=== PATIENT | female | born 1955 | race African-American/Black ===

== ENCOUNTER 2017-07-14 07:24 | Emergency (ER) | payer BC ==
[2017-07-14 09:44] VITALS: BP 129/72
--- NOTE | 2017-07-14 09:50 | RAD ---
HISTORY: Low back pain, left hip pain COMPARISONS: Pelvis dated July 14, 2016 VIEWS: 3, Frontal view of the pelvis with frontal and frog-leg views of the left hip FINDINGS: BONE DENSITY: Normal. BONES: There is no displaced fracture. JOINTS: There is mild osteoarthritis of the hips bilaterally. ALIGNMENT: There is no dislocation. SOFT TISSUES: Unremarkable. OTHER FINDINGS: None. IMPRESSION: OSTEOARTHRITIS. NO ACUTE OSSEOUS INJURY. IF SYMPTOMS PERSIST, RECOMMEND REPEAT IMAGING.
--- NOTE | 2017-07-14 09:51 | RAD ---
Indication: Back pain. 5 views of lumbar spine demonstrate vertebral bodies to be normal in height. Facet arthropathy is noted at L5-S1 with degenerative disc disease. Degenerative disc disease at T10-T11 and T11-T12. IMPRESSION: DEGENERATIVE CHANGES OF THE LUMBAR SPINE WITHOUT FRACTURE.
--- NOTE | 2017-07-14 14:30 | UC ---
Teja Mary Angela, scribed for Florence Morales MD on 07/14/17 at 0838 . Back Pain HPI - HPI Summary HPI Summary: This pt is a 61 y/o female presenting to [facility] c/o progressively worsening back pain and left hip pain s/p working out at the gym 4 days ago. She experiences back spasms with movement and when standing up from a sitting position. Pt was doing a pulling movement with her right arm while bending in a sitting position at the gym. Pt reports her pain has been significantly worse since yesterday. Pt notes her pain radiates to her left leg. She states having right foot tingling from diabetic neuropathy. Pt has taken tylenol and motrin with minimal relief. She denies bowel or urinary incontinence, fever, cold, chills, cough. Blood sugar has been running between 150-170. PCP: Dr. Christiansen. Last time she saw her PCP was last week for a UTI but it was negative. Pt has had left knee surgery and laminectomy (2014). She states going to [facility] when needed. - History of Current Complaint Chief Complaint: UCBackPain Stated Complaint: BACK/HIP/LEG PAIN Time Seen by Provider: 07/14/17 08:35 Hx Obtained From: Patient Onset/Duration: Lasting Days Timing: Lasting Days Severity Initially: Mild Severity Currently: Moderate Back Pain: Radiates To - left leg Aggravating Factor(s): Movement, Other - standing up from sitting position Alleviating Factor(s): Nothing Associated Signs And Symptoms: Positive: Tingling - right foot from diabetic neuropathy. Negative: Fever, Numbness, Abdominal Pain, Bladder Incontinence, Bowel Incontinence - Allergies/Home Medications Allergies/Adverse Reactions: Allergies Allergy/AdvReac Type Severity Reaction Status Date / Time Oxaprozin [From Daypro] Allergy Diaphoresis Verified 07/14/17 07:41 Sulindac [From Clinoril] Allergy Diaphoresis Verified 07/14/17 07:41 NSAIDs AdvReac Severe GI Upset Verified 07/14/17 07:41 Codeine AdvReac Hallucinati Verified 07/14/17 07:41 ons MOTRIN AdvReac GI Upset Uncoded 07/14/17 07:41 Home Medications: Home Medications Cod Liver Oil 1 cap PO 07/14/17 [History Confirmed 07/14/17] Cyanocobalamin TAB* [Vitamin B12 TAB*] 500 mcg PO DAILY 07/14/17 [History Confirmed 07/14/17] Folic Acid [FA-8] 0.8 mg PO 07/14/17 [History] Gabapentin CAP(*) [Neurontin 100 mg CAP(*)] 100 mg PO BID 07/14/17 [History Confirmed 07/14/17] Isosorbide Mononitrate ER TAB* [Imdur ER TAB*] 30 mg PO BID 07/14/17 [History Confirmed 07/14/17] Magnesium 500 mg PO 07/14/17 [History] Spironolactone TAB* [Aldactone TAB*] 25 mg PO DAILY 07/14/17 [History Confirmed 07/14/17] Valsartan TAB* [Diovan TAB*] 160 mg PO DAILY 07/14/17 [History Confirmed ] PMH/Surg Hx/FS Hx/Imm Hx Previously Healthy: No Endocrine History: Diabetes - type 2 Cardiovascular History: Hypertension - Surgical History Surgical History: Yes Surgery Procedure, Year, and Place: Jun 2015 - 3 level laminectomy, L3-L4, L4- L5, L[place] [facility] [place]AC[place]. [place] 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[place] Alcohol Use: None Substance Use Type: None Smoking Status (MU): Former Smoker Type: Cigarettes Amount Used/How Often: 1/2-1PPD X 2 YEARS Have You Smoked in the Last Year: No When Did the Patient Quit Smoking/Using Tobacco: 1973 - Immunization History Most Recent Influenza Vaccination: 2012 Most Recent Tetanus Shot: UP TO DATE Most Recent Pneumonia Vaccination: HAS NOT HAD Review of Systems Constitutional: Negative Skin: Negative Eyes: Negative ENT: Negative Respiratory: Negative Cardiovascular: Negative Genitourinary: Negative Neurovascular: Negative Musculoskeletal: Other: - back pain, left leg pain, left hip pain Neurological: Paresthesia - right foot from diabetic neuropathy All Other Systems Reviewed And Are Negative: Yes Physical Exam Triage Information Reviewed: Yes Appearance: Well-Nourished Vital Signs: Initial Vital Signs Temp 98.5 F 07/14/17 07:52 Pulse 78 07/14/17 07:52 Resp 20 07/14/17 07:52 BP 134/78 07/14/17 07:52 Pulse Ox 98 07/14/17 07:52 Vital Signs Reviewed: Yes Eye Exam: Normal ENT Exam: Normal Neck exam: Normal Neck: Positive: Supple Respiratory Exam: Normal, Other - no dyspnea, no tachypnea, normal respiratory rate Respiratory: Positive: Chest non-tender, Lungs clear, Normal breath sounds, No respiratory distress, No accessory muscle use Cardiovascular Exam: Normal Cardiovascular: Positive: RRR, No Murmur, Pulses Normal, Brisk Capillary Refill , Other: - Heart rate regular, good general skin color, good capillary refill Abdominal Exam: Normal Abdomen Description: Positive: Nontender, No Organomegaly, Soft Bowel Sounds: Positive: Present Musculoskeletal: Positive: Strength Intact, Other: - low back pain, left hip pain Neurological Exam: Normal - nonfocal, grossly intact Psychological Exam: Normal - conversing easily and appropriately Skin Exam: Normal - no visible or reported rash Diagnostics - Radiology Lumbar Spine XR Xray Interpretation: Positive (See Comments) - IMPRESSION: degenerative changes of the lumbar spine without fracture. ED physician has reviewed this radiology report and agrees. Radiology Interpretation Completed By: Radiologist Left hip XR Xray Interpretation: Positive (See Comments) - IMPRESSION: Osteoarthritis. No acute osseous injury. If symptoms persist, recommend repeat imaging. ED physician has reviewed this radiology report and agrees. Radiology Interpretation Completed By: Radiologist Back Pain Course/Dx - Course Course Of Treatment: Reviewed x-rays, reviewed x-ray reports with pt. No acute fx. + djd, arthritis. (see report). Reviewed medications and allergies with pt. Also reviewed medical history. Medication options for discomfort are limited. She may benefit from physical therapy (will check with pcp), she will f/u Dr. Christiansen, if possible within the next week. Lidoderm patch ordered prn in the meantime. Further imaging studies per discretion of pcp. Ms. Bajwa has a walker at home, using a cane here. Questions as posed answered to the best of my ability. Likely musc-skel strain (possibly psoas involvement in addition to LBS). Can not entirely exclude neurological (ex sciatic-type) component. No p/d. No b/b changes. She will f/u pcp, she will seek medical attention for worse or new problems in the meantime. - Differential Dx/Diagnosis Provider Diagnoses: Acute low back and hip sprain. Arthritis / djd. Discharge - Discharge Plan Condition: Stable Disposition: HOME Prescriptions: Lidocaine PATCH 5%* [Lidoderm 5% Patch*] 1 patch TRANSDERM DAILY #12 patch Patient Education Materials: Muscle Strain (ED), Low Back Strain (ED), Arthritis (ED) Referrals: Raúl Christiansen MD [Primary Care Provider] - Additional Instructions: Follow up Dr. Christiansen this week. Consider referral to physical therapy. Seek medical attention for worse or new problems. The documentation as recorded by the Teja granados Angela accurately reflects the service I personally performed and the decisions made by , Florence Morales MD.
== END 2017-07-14 10:25 | disposition home or self-care (01) ==
LOC: UCEAST 07:24
DX: M54.5 Low back pain (principal); S73.102A Unspecified sprain of left hip, initial encounter; X50.1XXA Overexertion from prolonged static or awkward postures, initial encounter; Y93.B9 Activity, other involving muscle strengthening exercises; Y92.89 Other specified places as the place of occurrence of the external cause; M51.36 Other intervertebral disc degeneration, lumbar region; M16.12 Unilateral primary osteoarthritis, left hip; E11.40 Type 2 diabetes mellitus with diabetic neuropathy, unspecified; I10 Essential (primary) hypertension; Z96.652 Presence of left artificial knee joint; Z90.710 Acquired absence of both cervix and uterus; Z88.6 Allergy status to analgesic agent; Z88.5 Allergy status to narcotic agent; Z88.8 Allergy status to other drugs, medicaments and biological substances; Z87.891 Personal history of nicotine dependence
CPT/HCPCS: 72110; 99212; G0463

== ENCOUNTER 2017-12-24 17:07 | Emergency (ER) | payer BC ==
[2017-12-24] MEDS ORDERED: Aspirin Low Dose CHEW TAB* 81 MG PO ONE (17:51)
[2017-12-24 18:15] LABS: ABS Basophils 0.1 10^3/ul (0-0.2); ABS Eosinophils 0.3 10^3/ul (0-0.6); ABS Lymphocytes 2.2 10^3/ul (1.0-4.8); ABS Monocytes 0.6 10^3/ul (0-0.8); ABS Neutrophils 4.5 10^3/ul (1.5-7.7); ABS Nucleated RBC 0 10^3/ul; Eosinophil % 3.6 % (0-6); Hematocrit 36 % (35-47); Hemoglobin 12.2 g/dl (12.0-16.0); Lymphocyte % 29.1 % (25-47); Mean Corpuscular HGB Conc 34 g/dl (31-36); Mean Corpuscular Hemoglobin 28 pg (27-31); Mean Corpuscular Volume 82 fL (80-97); Mean Platelet Volume 9 um3 (7.4-10.4); Nucleated Red Blood Cells % 0.1; Platelet Count 244 10^3/ul (150-450); Red Blood Count 4.39 10^6/ul (4.0-5.4); Red Cell Distribution Width 13 % (10.5-15); White Blood Count 7.6 10^3/ul (3.5-10.8)
[2017-12-24 18:23] LABS: INR 0.87 (0.77-1.02)
[2017-12-24 18:31] LABS: EGFR Non-African American 48.5 (>60)
--- NOTE | 2017-12-24 18:48 | RAD ---
Indication: Chest pain. 2 views of the chest are reviewed. No mediastinal shift is noted. Heart is of normal size and configuration. Lung johnson are clear. IMPRESSION: No active cardiopulmonary disease is noted.
[2017-12-24 18:54] LABS: Urine Appearance Clear; Urine Blood Negative (Negative); Urine Color Straw; Urine Ketones Negative (Negative); Urine Protein Negative (Negative); Urine Specific Gravity 1.006 (1.010-1.030); Urine Urobilinogen Negative (Negative)
[2017-12-24 19:07] VITALS: BP 132/78
--- NOTE | 2017-12-30 23:35 | ED ---
Lilly Mary Julia, scribed for Armen Gilbert MD on 12/24/17 at 1810 . Palpitations / Dysrhythmia - HPI Summary HPI Summary: This patient is a 62 year old F presenting to [facility] with a chief complaint of intermittent dizziness for the past week and a half that became constant today. Patient reports diarrhea prior to dizziness. Patient denies SOB, chest pain, and nausea. Symptoms aggravated by sitting to standing. She was sent her by her PCP due to an abnormal EKG finding at her PCP. Patient has RBBB on her EKGs at baseline. - History of Current Complaint Chief Complaint: EDChestPainROMI Time Seen by Provider: 12/24/17 18:01 Hx Obtained From: Patient Onset/Duration: Lasting Weeks Timing: Intermittent Episodes Lasting: Severity Initially: Worse Since: - today Associated Signs & Symptoms: Dizzy - Allergy/Home Medications Allergies/Adverse Reactions: Allergies Allergy/AdvReac Type Severity Reaction Status Date / Time MS Oxaprozin [From Daypro] Allergy Diaphoresis Verified 07/14/17 07:41 MS Sulindac [From Clinoril] Allergy Diaphoresis Verified 07/14/17 07:41 Penicillins Allergy See Comment Verified 12/24/17 17:57 MS NSAIDs [NSAIDs] AdvReac Severe GI Upset Verified 07/14/17 07:41 MS Codeine [Codeine] AdvReac Hallucinati Verified 07/14/17 07:41 ons MOTRIN AdvReac GI Upset Uncoded 07/14/17 07:41 PMH/Surg Hx/FS Hx/Imm Hx Endocrine/Hematology History: Reports: Hx Diabetes - type 2 Cardiovascular History: Reports: Hx Angina - NONE IN THE LAST 1-2 WEEKS, Hx Hypertension Denies: Hx Pacemaker/ICD Respiratory History: Reports: Hx Sleep Apnea - NO APPLIANCE OR CPAP FOR, Other Respiratory Problems/Disorders - recent SOB Denies: Hx Asthma, Hx Chronic Obstructive Pulmonary Disease (COPD) GI History: Reports: Hx Gastroesophageal Reflux Disease - ON MEDICATION FOR Musculoskeletal History: Reports: Hx Arthritis, Hx Back Problems, Other Musculoskeletal History - 02/2014 (left) TKR Denies: Hx Scoliosis Sensory History: Reports: Hx Contacts or Glasses - GLASSES Denies: Hx Hearing Aid Opthamlomology History: Reports: Hx Contacts or Glasses - GLASSES Neurological History: Denies: Hx Headaches, Other Neuro Impairments/Disorders Psychiatric History: Denies: Hx Panic Disorder - Surgical History Surgery Procedure, Year, and Place: Jun 2015 - 3 level laminectomy, L3-L4, L4- L5, L5 states. [facility] [place]/2014- LEFT TOTAL KNEE REPLACEMENT. HYSTERECTOMY-[facility] [place]- 1979. TUBAL -1977 Hx Anesthesia Reactions: No - Immunization History Date of Tetanus Vaccine: Unsure Date of Influenza Vaccine: 2012 Infectious Disease History: No Infectious Disease History: Denies: Traveled Outside the [place] in Last 30 Days - Family History Known Family History: Positive: Other - Breast CA - Social History Alcohol Use: None Substance Use Type: Reports: None Hx Tobacco Use: No Smoking Status (MU): Former Smoker Type: Cigarettes Amount Used/How Often: 1/2-1PPD X 2 YEARS Have You Smoked in the Last Year: No Review of Systems Negative: Chest Pain Negative: Shortness Of Breath Negative: Nausea Neurological: Other - dizzy All Other Systems Reviewed And Are Negative: Yes Physical Exam - Summary Physical Exam Summary: Appearance: Well-appearing, Well-nourished Skin: Warm, Dry, No rash Eyes: Normal, PERRL, EOMI, sclera anicteric ENT: Normal Neck: Supple, nontender Respiratory: rales at the right base Cardiovascular: S1, S2, no murmur, no rub, no gallop Abdomen: Soft, nontender, no organomegaly Bowel sounds: Present Musculoskeletal: Normal, Strength/ROM Intact, no edema, pulses symmetrical Neurological: Normal, A&Ox3, cranial nerves II-XII WNL, follows commands, gait not tested, sensation intact to pin and light touch Psychiatric: affect normal, behavior appropriate, dressed appropriately, judgment intact Triage Information Reviewed: Yes Vital Signs On Initial Exam: Initial Vitals Temp Pulse Resp BP Pulse Ox 98.1 F 75 18 166/74 96 12/24/17 17:10 12/24/17 17:10 12/24/17 17:10 12/24/17 17:10 12/24/17 17:10 Vital Signs Reviewed: Yes Diagnostics - Vital Signs Vital Signs Temp Pulse Resp BP Pulse Ox 12/24/17 17:59 79 19 98 12/24/17 17:54 77 15 97 12/24/17 17:52 147/79 12/24/17 17:10 98.1 F 75 18 166/74 96 - Laboratory Lab Results: Lab Results 12/24/17 12/24/17 12/24/17 Range/Units 18:03 18:03 18:03 WBC 7.6 (3.5-10.8) 10^3/ul RBC 4.39 (4.0-5.4) 10^6/ul Hgb 12.2 (12.0-16.0) g/dl Hct 36 (35-47) % MCV 82 (80-97) fL MCH 28 (27-31) pg MCHC 34 (31-36) g/dl RDW 13 (10.5-15) % Plt Count 244 (150-450) 10^3/ul MPV 9 (7.4-10.4) um3 Neut % (Auto) 59.2 (38-83) % Lymph % (Auto) 29.1 (25-47) % [place] % (Auto) 7.4 H (0-7) % Eos % (Auto) 3.6 (0-6) % Baso % (Auto) 0.7 (0-2) % Absolute Neuts (auto) 4.5 (1.5-7.7) 10^3/ul Absolute Lymphs (auto) 2.2 (1.0-4.8) 10^3/ul Absolute Monos (auto) 0.6 (0-0.8) 10^3/ul Absolute Eos (auto) 0.3 (0-0.6) 10^3/ul Absolute Basos (auto) 0.1 (0-0.2) 10^3/ul Absolute Nucleated RBC 0 10^3/ul Nucleated RBC % 0.1 INR (Anticoag Therapy) 0.87 (0.77-1.02) APTT 29.0 (26.0-36.3) seconds Sodium (133-145) mmol/L Potassium (3.5-5.0) mmol/L Chloride (101-111) mmol/L Carbon Dioxide (22-32) mmol/L Anion Gap (2-11) mmol/L BUN (6-24) mg/dL Creatinine (0.51-0.95) mg/dL Est GFR ( Amer) (>60) Est GFR (Non-Af Amer) (>60) BUN/Creatinine Ratio (8-20) Glucose (70-100) mg/dL Lactic Acid (0.5-2.0) mmol/L Calcium (8.6-10.3) mg/dL Magnesium (1.9-2.7) mg/dL Total Bilirubin (0.2-1.0) mg/dL AST (13-39) U/L ALT (7-52) U/L Alkaline Phosphatase (34-104) U/L Total Creatine Kinase (10-223) U/L CK-MB (CK-2) (0.6-6.3) ng/mL Myoglobin (14.3-65.8) ng/mL Troponin I (<0.04) ng/mL B-Natriuretic Peptide 21 ( - 100) pg/mL Total Protein (6.4-8.9) g/dL Albumin (3.2-5.2) g/dL Globulin (2-4) g/dL Albumin/Globulin Ratio (1-3) TSH (0.34-5.60) mcIU/mL Thyroxine (T4) (6.09-12.23) mcg/mL Urine Color Urine Appearance Urine pH (5-9) Ur Specific Talent (1.010-1.030) Urine Protein (Negative) Urine Ketones (Negative) Urine Blood (Negative) Urine Nitrate (Negative) Urine Bilirubin (Negative) Urine Urobilinogen (Negative) Ur Leukocyte Esterase (Negative) Urine WBC (Auto) (Absent) Urine RBC (Auto) (Absent) Ur Squamous Epith Cells (Absent) Urine Bacteria (Absent) Urine Glucose (Negative) 12/24/17 12/24/17 12/24/17 Range/Units 18:03 18:03 18:33 WBC (3.5-10.8) 10^3/ul RBC (4.0-5.4) 10^6/ul Hgb (12.0-16.0) g/dl Hct (35-47) % MCV (80-97) fL MCH (27-31) pg MCHC (31-36) g/dl RDW (10.5-15) % Plt Count (150-450) 10^3/ul MPV (7.4-10.4) um3 Neut % (Auto) (38-83) % Lymph % (Auto) (25-47) % [place] % (Auto) (0-7) % Eos % (Auto) (0-6) % Baso % (Auto) (0-2) % Absolute Neuts (auto) (1.5-7.7) 10^3/ul Absolute Lymphs (auto) (1.0-4.8) 10^3/ul Absolute Monos (auto) (0-0.8) 10^3/ul Absolute Eos (auto) (0-0.6) 10^3/ul Absolute Basos (auto) (0-0.2) 10^3/ul Absolute Nucleated RBC 10^3/ul Nucleated RBC % INR (Anticoag Therapy) (0.77-1.02) APTT (26.0-36.3) seconds Sodium 136 (133-145) mmol/L Potassium 4.5 (3.5-5.0) mmol/L Chloride 103 (101-111) mmol/L Carbon Dioxide 26 (22-32) mmol/L Anion Gap 7 (2-11) mmol/L BUN 22 (6-24) mg/dL Creatinine 1.13 H (0.51-0.95) mg/dL Est GFR ( Amer) 62.3 (>60) Est GFR (Non-Af Amer) 48.5 (>60) BUN/Creatinine Ratio 19.5 (8-20) Glucose 108 H (70-100) mg/dL Lactic Acid 1.2 (0.5-2.0) mmol/L Calcium 9.8 (8.6-10.3) mg/dL Magnesium 1.9 (1.9-2.7) mg/dL Total Bilirubin 0.30 (0.2-1.0) mg/dL AST 13 (13-39) U/L ALT 9 (7-52) U/L Alkaline Phosphatase 55 (34-104) U/L Total Creatine Kinase 72 (10-223) U/L CK-MB (CK-2) 2.0 (0.6-6.3) ng/mL Myoglobin 28.6 (14.3-65.8) ng/mL Troponin I 0.01 (<0.04) ng/mL B-Natriuretic Peptide ( - 100) pg/mL Total Protein 7.5 (6.4-8.9) g/dL Albumin 4.3 (3.2-5.2) g/dL Globulin 3.2 (2-4) g/dL Albumin/Globulin Ratio 1.3 (1-3) TSH 0.71 (0.34-5.60) mcIU/mL Thyroxine (T4) 9.32 (6.09-12.23) mcg/mL Urine Color Straw Urine Appearance Clear Urine pH 5.0 (5-9) Ur Specific Talent 1.006 L (1.010-1.030) Urine Protein Negative (Negative) Urine Ketones Negative (Negative) Urine Blood Negative (Negative) Urine Nitrate Negative (Negative) Urine Bilirubin Negative (Negative) Urine Urobilinogen Negative (Negative) Ur Leukocyte Esterase Trace A (Negative) Urine WBC (Auto) Trace(0-5/hpf) (Absent) Urine RBC (Auto) Trace(0-2/hpf) (Absent) Ur Squamous Epith Cells Present A (Absent) Urine Bacteria Absent (Absent) Urine Glucose Negative (Negative) Result Diagrams: 12/24/17 18:03 12/24/17 18:03 Lab Statement: Any lab studies that have been ordered have been reviewed, and results considered in the medical decision making process. - Radiology CXR Radiology Interpretation Completed By: Radiologist - No active cardiopulmonary disease is noted. ED Physician has reviewed this report. Course/Dx - Course Course Of Treatment: Patient presents with intermittent dizziness for the past week and a half that became constant today. Patient reports diarrhea prior to dizziness. Patient denies SOB, chest pain, and nausea. She was sent her by her PCP due to an abnormal EKG finding at her PCP. Patient has RBBB on her EKGs at baseline. A CXR is unremarkable. - Diagnoses Provider Diagnoses: Orthostatic hypotension, dehydration secondary to diarrhea Discharge - Discharge Plan Condition: Good Disposition: HOME Discharge Disposition Comment: discharge home Patient Education Materials: Syncope (ED) Referrals: Raúl Christiansen MD [Primary Care Provider] - The documentation as recorded by the Lilly granados Julia accurately reflects the service I personally performed and the decisions made by me, Armen Gilbert MD.
== END 2017-12-24 19:07 | disposition home or self-care (01) ==
LOC: ED 17:07
DX: I95.1 Orthostatic hypotension (principal); E86.0 Dehydration; R19.7 Diarrhea, unspecified; Z88.6 Allergy status to analgesic agent; Z88.0 Allergy status to penicillin; Z88.8 Allergy status to other drugs, medicaments and biological substances; Z87.891 Personal history of nicotine dependence
CPT/HCPCS: 36415; 71045; 71046; 80053; 81003; 81015; 82550; 82553; 83605; 83735; 83874; 83880; 84436; 84443; 84484; 85025; 85610; 85730; 87086; 99282; A9270-GY

== ENCOUNTER 2023-12-24 07:30 | Inpatient (IN) ==
[2024-02-14] MEDS ORDERED: Metoclopramide 5 MG/ML VIAL (10 mg) IV PRN (17:52)
[2024-02-14] MEDS ORDERED: Ondansetron 4 mg VIAL 2 MG/ML 2 ml VIAL IV PRN (17:52)
[2024-02-14] MEDS ORDERED: Naloxone 0.4 mg VIAL 0.4 mg/ml 1 ml VIAL IV PRN (17:52)
[2024-02-14] MEDS ORDERED: NS 0.45% 1000 ml BAG 1,000 ML IV SCH (18:00)
[2024-02-16] MEDS: Buffered Lidocaine 1% SYRIN 1 ml INTRADERM ONE (11:36)
[2024-02-16] MEDS: Acetaminophen IV 1 GM/100ML 1,000 MG/100 ML BAG IV ONE (11:36)
[2024-02-16] MEDS ORDERED: ceFAZolin 2 GM PREMIX 2 GM/50 ML BAG ONE (11:55)
[2024-02-16 12:00] LABS: Rapid COVID-19 Molecular Undetected (Undetected)
[2024-02-16] MEDS ORDERED: Rocuronium 50 mg VIAL 10 mg/ml 5 ml VIAL (50 mg) ONE (12:24)
[2024-02-16] MEDS ORDERED: fentaNYL 250 mcg/5 ml 50 MCG/ML 5 ml VIAL (250 MCG) ONE (12:24)
[2024-02-16] MEDS ORDERED: Propofol 10 MG/ML 20 ML BTL ONE (12:24)
[2024-02-16] MEDS ORDERED: Lidocaine 2% PF 5 ML VIAL ONE (12:26)
[2024-02-16] MEDS ORDERED: Midazolam 2 mg/2 ml VIAL 1 mg/ml 2 ml VIAL (2 mg) ONE (12:27)
[2024-02-16] MEDS ORDERED: KETAMINE HCL 10 MG/ML 20 ml VIAL (200 MG) ONE (13:06)
[2024-02-16] MEDS ORDERED: Tranexamic Acid 1 GM/100ML BAG 2,000 MG/200 ML BAG IV ONE (13:39)
[2024-02-16] MEDS ORDERED: ROPIVACAINE 5 MG/ML 30 ML BTL (0.5%) ONE (14:04)
[2024-02-16] MEDS ORDERED: HYDROmorphone 0.5 MG/0.5 ML SYRINGE ONE ×2 (15:11→15:37)
[2024-02-16] MEDS ORDERED: Dexamethasone IV 4 MG/ML VIAL 1 ml VIAL ONE (15:19)
[2024-02-16] MEDS ORDERED: Ondansetron 4 mg VIAL 2 MG/ML 2 ml VIAL ONE (15:19)
[2024-02-16] MEDS ORDERED: Acetaminophen IV 1 GM/100ML 1,000 MG/100 ML BAG IV ONE (15:19)
[2024-02-16] MEDS ORDERED: Ondansetron 4 mg VIAL 2 MG/ML 2 ml VIAL IV PRN (15:44)
[2024-02-16] MEDS ORDERED: Magnesium Hydroxide LIQ 30 ML UDC PO PRN (15:44)
[2024-02-16] MEDS ORDERED: Ondansetron ODT 4 mg TAB 4 MG TAB PO PRN (15:44)
[2024-02-16] MEDS ORDERED: Lactulose 30 ml UDC PO PRN (15:44)
[2024-02-16] MEDS ORDERED: fentaNYL 100 mcg/2 ml 50 MCG/ML VIAL ONE ×2 (17:07→17:50)
[2024-02-16] MEDS ORDERED: Dextrose 50% Syringe 50 ml 25 GM/50 ML SYRINGE IV PUSH PRN (17:50)
[2024-02-16] MEDS: fentaNYL 100 mcg/2 ml 50 MCG/ML VIAL IV PRN (17:52)
[2024-02-16] MEDS: Lactated Ringers 1000 ml BAG 1,000 ML IV SCH ×2 (18:12→22:56)
[2024-02-16] MEDS ORDERED: HYDROmorphone 1 MG/1 ML SYRINGE ONE (18:49)
[2024-02-16] MEDS: HYDROmorphone 1 MG/1 ML SYRINGE IV SLOW PU PRN (18:52)
[2024-02-16] MEDS: Magnesium Hydroxide LIQ 30 ML UDC PO SCH (21:47)
[2024-02-16] MEDS: Morphine 2 MG/ML SYRINGE IV PRN (22:09)
[2024-02-16] MEDS: CMCS: LoraTADine 10 mg TAB (NF) PO SCH (22:14)
[2024-02-17] MEDS: ceFAZolin 1 GM ADVAN 1 GM in NS 0.9% 50 ML 50 ML IVPB SCH (00:43)
[2024-02-17 05:27] LABS: Hematocrit 26.1 % (35-45); Hemoglobin 8.8 g/dL (11.5-14.3); Mean Platelet Volume 9.2 fL (7.5-11.2); Platelet Count 204 10^3/uL (150-450)
[2024-02-17 06:55] LABS: Calcium 8.7 mg/dL (8.6-10.3); Creatinine, Serum 1.36 mg/dL (0.51-0.95); Potassium 5.8 mmol/L (3.5-5.0); eGFR CKD-EPI 41.9 (>60)
[2024-02-17] MEDS: Vitamin THERAPEUTIC TAB PO SCH (09:09)
[2024-02-17] MEDS ORDERED: SODIUM ZIRCONIUM CYCLOSILICATE 10 GM PACKET PO SCH (09:30)
[2024-02-17] MEDS: SODIUM ZIRCONIUM CYCLOSILICATE 10 GM PACKET PO SCH (11:19)
[2024-02-17 16:35] LABS: Calcium 8.9 mg/dL (8.6-10.3); Creatinine, Serum 1.57 mg/dL (0.51-0.95); Magnesium 2.3 mg/dL (1.9-2.7); Potassium 4.7 mmol/L (3.5-5.0); eGFR CKD-EPI 35.3 (>60)
[2024-02-18 03:27] LABS: Urine Appearance Clear; Urine Bilirubin Negative (Negative); Urine Blood Negative (Negative); Urine Color Light-Yellow; Urine Glucose 4+ (>=1000 mg/dL) (Negative); Urine Ketones Negative (Negative); Urine Nitrite Negative (Negative); Urine Protein Negative (Negative); Urine Specific Gravity 1.019 (1.002-1.030); Urine Urobilinogen Negative (Negative); Urine pH 5.5 (5.0-8.0)
[2024-02-18 03:37] LABS: ABS Eosinophils 0.1 10^3/uL (0.0-0.5); ABS Lymphocytes 3.4 10^3/uL (1.0-4.8); ABS Monocytes 1.3 10^3/uL (0.0-0.9); ABS Neutrophils 11.2 10^3/uL (1.5-7.6); ABS Nucleated RBC 0.01 10^3/ul; Eosinophil % 0.9 %; Hematocrit 28.7 % (35-45); Hemoglobin 9.5 g/dL (11.5-14.3); Lymphocyte % 21.2 %; Mean Corpuscular Hemoglobin 27.9 pg (27-33); Mean Corpuscular Hgb Conc 33.2 g/dL (31-36); Mean Corpuscular Volume 84.3 fL (80-97); Mean Platelet Volume 9.7 fL (7.5-11.2); Nucleated Red Blood Cells % 0.1 %/100WBC (0.0-0.8); Platelet Count 230 10^3/uL (150-450); Red Blood Count 3.41 10^6/uL (3.63-4.92); Red Cell Distribution Width 13.9 % (12-17); White Blood Count 16.2 10^3/uL (3.8-11.8)
[2024-02-18 04:23] LABS: Calcium 8.9 mg/dL (8.6-10.3); Creatinine, Serum 1.48 mg/dL (0.51-0.95); Magnesium 2.7 mg/dL (1.9-2.7); Potassium 4.6 mmol/L (3.5-5.0); eGFR CKD-EPI 37.9 (>60)
[2024-02-18] MEDS: cefTRIAXone 1 gm/50 mL D5W 1 GM/50 ML BAG IV SCH (04:28)
[2024-02-18 09:53] VITALS: BP 98/58
== END 2024-02-18 14:15 | disposition home or self-care (01) | DRG 470 ==
LOC: AA 02-16 11:18 → SSU 02-16 15:44
PROVIDERS: ADMIT Orthopaedic Surgery Adult Reconstructive Orthopaedic Surgery; ATTEND Orthopaedic Surgery Adult Reconstructive Orthopaedic Surgery